=== PATIENT | female | born 1965 | race Caucasian/White ===

== ENCOUNTER 2017-11-10 09:40 | Emergency (ER) | payer SELFPAY ==
[~2017-11-10] VITALS: Ht 167.6 cm; Wt 75.0 kg
[~2017-11-10 09:40] MED LIST: LEVO112T2 PO
[2017-11-10 09:47] VITALS: BP 138/76; PULSE 67; RESP 16; TEMP 98.7; O2SAT 98
[2017-11-10] MEDS ORDERED: SYNT112T PO ×2 (10:50→11:50)
--- NOTE | 2017-11-10 11:53 | PD ---
HPI Chief Complaint: Medication Refill Request Time Seen by Provider: 11:22 Travel History International Travel<30 days: No Contact w/Intl Traveler<30days: No Traveled to known affect area: No History of Present Illness HPI 52-year-old female here resting medication refill of her Synthroid. She reports she has been on Synthroid for the last 30 years. She is followed by [facility] but has been unable to schedule an appointment. She ran out of her Synthroid several days ago. She reports she has been on the same dose of Synthroid 112 mcg for the last 30 years. She denies any medical complaints. [facility] Past Medical History Narrative Medical Hypothyroidism Diminished Hearing: No Immunizations Current: No Thyroid Disease: Yes (Hypo) Influenza Vaccination: No ?: Not Menopausal: Yes Tubal Ligation: Yes Past Surgical History Abdominal Surgery: Yes (HERNIA) Social History Alcohol Use: No Tobacco Use: Yes (1PPD) Substance Use: No Allergies-Medications (Allergen,Severity, Reaction): Coded Allergies: No Known Allergies (Unverified Adverse Reaction, Unknown, 11/10/17) Reported Meds & Prescriptions Reported Meds & Active Scripts Active Reported Synthroid (Levothyroxine Sodium) 112 Mcg Tab 112 Mcg PO DAILY Review of Systems Except as stated in HPI: all other systems reviewed are Neg Cardiovascular: No: Chest Pain or Discomfort, Palpitations, Irregular Rhythm, Tachycardia, Diaphoresis, Syncope, Dyspnea on exertion, Varicosities, Edema, Cyanosis, Varicosities, Phlebitis, Claudication, Other Endocrine: No: Heat Intolerance, Cold Intolerance, Polyuria, Polydipsia, Other Physical Exam Narrative GENERAL: Alert well-appearing 52-year-old female SKIN: Warm and dry. HEAD: Normocephalic. EYES: No scleral icterus. No injection or drainage. NECK: Supple, trachea midline. No JVD or lymphadenopathy. CARDIOVASCULAR: Regular rate and rhythm without murmurs, gallops, or rubs. RESPIRATORY: Breath sounds equal bilaterally. No accessory muscle use. GASTROINTESTINAL: Abdomen soft, non-tender, nondistended. MUSCULOSKELETAL: No cyanosis, or edema. BACK: Nontender without obvious deformity. No CVA tenderness. Data Data Last Documented VS Vital Signs Date Time Temp Pulse Resp B/P (MAP) Pulse Ox O2 Delivery O2 Flow Rate FiO2 11/10/17 09:47 98.7 67 16 138/76 (96) 98 [facility] Medical Decision Making Medical Screen Exam Complete: Yes Emergency Medical Condition: Yes Differential Diagnosis Hypothyroidism, medication refill, normal exam Narrative Course 52-year-old female here requesting medication refill of her Synthroid. According to the EMR she's been seen her multiple times over the years for medication refill. She reports [facility] but was unable to schedule an appointment and her medication ran out. She has a normal exam. She has no medical complaint. She will be given a two-week supply of medication and encouraged to follow-up with the [facility] or the [facility]. Precautions were discussed. Diagnosis Primary Impression: Hypothyroidism Qualified Codes: E03.9 - Hypothyroidism, unspecified Additional Impression: Medication refill Referrals: [facility] Additional Instructions: Medication as directed Follow-up with [facility] or [facility] Return if you have new or worsening symptoms Scripts Levothyroxine (Synthroid) 112 Mcg Tab 112 MCG PO DAILY for Thyroid, #14 TAB 0 Refills Prov: Linnea Evangelista 11/10/17 Disposition: 01 DISCHARGE HOME Condition: Stable Linnea Evangelista Nov 10, 2017 11:53
== END 2017-11-10 12:16 | disposition home or self-care (01) ==
LOC: PHED 09:40 → PHEFT 12:16
DX: Z76.0 Encounter for issue of repeat prescription (principal); E03.9 Hypothyroidism, unspecified; Z79.899 Other long term (current) drug therapy
CPT/HCPCS: 99281